=== PATIENT | female | born 1950 | race Caucasian/White ===

== ENCOUNTER 2016-10-08 15:03 | Outpatient (CLI) | payer BC | END 2016-10-08 15:04 | disposition home or self-care (01) | DX: Z78.0 Asymptomatic menopausal state (principal) ==

== ENCOUNTER 2016-10-08 15:04 | Outpatient (CLI) | payer BC | END 2016-10-08 15:05 | disposition home or self-care (01) | DX: Z12.31 Encounter for screening mammogram for malignant neoplasm of breast (principal) ==

== ENCOUNTER 2017-12-05 11:44 | Outpatient (CLI) | payer MEDICARE, OTHER | END 2017-12-05 11:45 | disposition home or self-care (01) | LOC: LAB.F 11:44 | PROVIDERS: ATTEND Physician Assistant | DX: Z09 Encounter for follow-up examination after completed treatment for conditions other than malignant neoplasm (principal) | CPT/HCPCS: 36415; 85025 ==

== ENCOUNTER 2017-12-06 08:00 | Outpatient (CLI) | payer MEDICARE, OTHER ==
[2017-12-07 10:49] LABS: BASOPHILS % (AUTO) 0.6 %; EOSINOPHILS # (AUTO) 0.2 10^3/uL (0.0-0.7); EOSINOPHILS % (AUTO) 3.1 %; HGB - HEMOGLOBIN 12.5 g/dL (12.0-16.0); LYMPHOCYTES # (AUTO) 1.4 10^3/uL (1.5-3.5); LYMPHOCYTES % (AUTO) 20.3 %; MEAN CORPUSCULAR HEMOGLOBIN 29.7 pg (27.0-31.0); MEAN CORPUSCULAR HGB CONC 33.4 g/dL (32.0-36.0); MEAN PLATELET VOLUME 8.7 fL (7.9-10.8); MONOCYTES # (AUTO) 0.5 10^3/uL (0.0-1.0); MONOCYTES % (AUTO) 6.7 %; NEUTROPHILS # (AUTO) 4.8 10^3/uL (1.5-6.6); NEUTROPHILS % (AUTO) 69.3 %; PLT - PLATELET COUNT 278 10^3/uL (130-450); RED BLOOD COUNT 4.21 10^6/uL (4.20-5.40); RED CELL DISTRIBUTION WIDTH 14.5 % (12.0-15.0); WHITE BLOOD COUNT 6.9 x10^3/uL (4.8-10.8)
== END 2017-12-06 08:01 | disposition home or self-care (01) ==
LOC: LAB.F 08:00
PROVIDERS: ATTEND Physician Assistant
DX: Z09 Encounter for follow-up examination after completed treatment for conditions other than malignant neoplasm (principal); I10 Essential (primary) hypertension
CPT/HCPCS: 36415; 85025

== ENCOUNTER 2018-01-02 14:32 | Outpatient (CLI) | payer MEDICARE, OTHER ==
--- NOTE | 2018-01-03 09:28 | Mammography Report ---
DIGITAL SCREENING MAMMOGRAM: 01/02/2018 COMPARISON: 10/08/2016, 04/07/2012, 03/29/2011, and 03/26/2010. TECHNIQUE: Bilateral digital CC and MLO projections. FINDINGS: There are scattered fibroglandular densities. There are bilateral coarse appearing benign calcifications. No suspicious clustered microcalcifications, dominant mass, skin thickening, architectural distortion, or interval change. IMPRESSION: NEGATIVE. BI-RADS CATEGORY 1 - NEGATIVE. SUGGEST RETURN TO ROUTINE SCREENING IN 12 MONTHS. STANDARD QUALIFYING STATEMENTS: 1. This examination was reviewed with the aid of Computer-Aided Detection (CAD) . 2. A negative or benign imaging report should not delay biopsy if clinically suspicious findings are present. Consider surgical consultation if warranted. More than 5 % of cancers are not identified by imaging. 3. Dense breasts may obscure an underlying neoplasm. TD: 01/03/2018 09:27 BENY
== END 2018-01-02 14:33 | disposition home or self-care (01) ==
LOC: DI 14:32
PROVIDERS: ATTEND Physician Assistant
DX: Z12.31 Encounter for screening mammogram for malignant neoplasm of breast (principal)
CPT/HCPCS: 77067

== ENCOUNTER 2019-09-06 12:22 | Outpatient (CLI) | payer MEDICARE, OTHER ==
--- NOTE | 2019-09-10 10:05 | Mammography Report ---
Reason: ROUTINE MAMMO Procedure Date: 09/06/2019 Accession Number: [id number] / [id number] Procedure: NATALIE - Screening Mammo w/Tuan CPT Code: Final Report FULL RESULT: EXAM: Screening Mammo w/Tuan DATE: 09/06/2019 12:43 PM CLINICAL HISTORY: Screening encounter. TECHNIQUE: (B) - Bilateral CC and MLO views were obtained. COMPARISON: 01/02/2018 through 03/26/2010. PARENCHYMAL PATTERN: (D) - The breast(s) demonstrate(s) heterogeneously dense fibroglandular parenchyma. FINDINGS: Redemonstration of coarse typically benign calcifications bilaterally. There are no suspicious masses, calcifications, or areas of distortion. IMPRESSION: Benign findings. BI-RADS category 2. RECOMMENDATION: (ANNUAL) - Recommend routine annual screening mammography. BI-RADS CATEGORY: (2) - Benign Findings. STANDARD QUALIFYING STATEMENTS: 1. This examination was not reviewed with the aid of Computer-Aided Detection (CAD). 2. A negative or benign imaging report should not preclude biopsy if clinically suspicious findings are present. 3. Dense breasts may obscure an underlying neoplasm. 4. This examination was reviewed with the aid of 3D breast imaging (tomosynthesis).
== END 2019-09-06 12:23 | disposition home or self-care (01) ==
LOC: DI 12:22
PROVIDERS: ATTEND Physician Assistant
DX: Z12.31 Encounter for screening mammogram for malignant neoplasm of breast (principal)
CPT/HCPCS: 77063; 77067

== ENCOUNTER 2021-03-29 12:23 | Outpatient (CLI) | payer MEDICARE, OTHER ==
--- NOTE | 2021-03-31 12:21 | Mammography Report ---
BILATERAL DIGITAL SCREENING MAMMOGRAM 3D/2D: 03/29/2021 CLINICAL: Routine screening. Comparison is made to exams dated: 09/06/2019 mammogram, 01/02/2018 mammogram, 10/08/2016 mammogram, 2011 mammogram, 03/29/2011 mammogram, and 03/26/2010 mammogram - [facility]. The tis emilio of both breasts is predominantly fatty. No significant masses, calcifications, or other findings are seen in either breast. There has been no significant interval change. IMPRESSION: NEGATIVE There is no mammographic evidence of malignancy. A 1 year screening mammogram is recommended. This exam was interpreted at Station ID: [id number]. NOTE: For mammograms, a report in lay terms will be sent to the patient. Approximately 15% of breast malignancies will not be visualized mammographically. In the management of a palpable breast mass, a negative mammogram must not discourage biopsy of a clinically suspicious lesion. Electronically Signed By: Lester Clinton M.D., jr/khari:03/30/2021 09:17:32 ACR BI-RADS Category 1: Negative 3341F A -Almost entirely fatty 1 Mammogram [id number] 1 year screening B
== END 2021-03-29 12:24 | disposition home or self-care (01) ==
LOC: DI.S 12:23
PROVIDERS: ATTEND Nurse Practitioner Family
DX: Z12.31 Encounter for screening mammogram for malignant neoplasm of breast (principal)

== ENCOUNTER 2022-10-27 15:41 | Outpatient (CLI) | payer MEDICARE, OTHER ==
--- NOTE | 2022-10-27 21:20 | XRAY Report ---
PROCEDURE: Cervical Spine Comp w/Flex/Ext INDICATIONS: BICEP TENDON TECHNIQUE: 7 views of the cervical spine were acquired. COMPARISON: X-ray lumbar spine 12/25/2008 FINDINGS: Bones: No fractures or dislocations to the C7-T1 level. No suspicious bony lesions. There is strai ghtening of cervical curvature. Severe disc space narrowing is present at C4-5, C5-6 and C6-7 with an terior bridging osteophytes most prominent at C5-6 and C6-7. Multilevel uncovertebral arthropathy is present. There is moderate to severe left foraminal narrowing at C3-4, C4-5 as well as mild to modera te at right C3-4. There is decreased range of motion between flexion and extension, with preserved no rmal bony alignment. Soft tissues: Prevertebral soft tissues are normal in thickness. IMPRESSION: Multilevel degenerative changes most severe from C4-5 through C6-7 with decreased range of motion. Reviewed by: Amy Stauffer MD on 10/27/2022 9:19 PM PST Approved by: Amy Stauffer MD on 10/27/2022 9:19 PM PST Station ID: [id number]
--- NOTE | 2022-10-27 21:21 | XRAY Report ---
PROCEDURE: Shoulder 3 View LT INDICATIONS: BICEP TENDON TECHNIQUE: 3 views of the shoulder were acquired. COMPARISON: X-ray shoulder 11/01/2008 FINDINGS: Bones: No fractures or dislocations. No suspicious bony lesions. Visualized ribs appear intact. M oderate to severe acromioclavicular degenerative narrowing. Soft tissues: No suspicious soft tissue calcifications. Visualized portions of the left lung are cl ear IMPRESSION: Acromioclavicular arthritic change. Reviewed by: Amy Stauffer MD on 10/27/2022 9:19 PM PST Approved by: Amy Stauffer MD on 10/27/2022 9:19 PM PST Station ID: [id number]
== END 2022-10-27 15:42 | disposition home or self-care (01) ==
LOC: DI.S 15:41
PROVIDERS: ATTEND Internal Medicine
DX: M47.812 Spondylosis without myelopathy or radiculopathy, cervical region (principal); M19.012 Primary osteoarthritis, left shoulder

== ENCOUNTER 2023-05-31 13:18 | Outpatient (CLI) | payer MEDICARE, OTHER ==
--- NOTE | 2023-06-01 22:16 | XRAY Report ---
PROCEDURE: Knee 3 View LT INDICATIONS: KNEE JOINT PAINFUL ON MOVEMENT TECHNIQUE: 3 views of the left knee(s) were acquired. COMPARISON: None. FINDINGS: Bones: Total knee arthroplasty. No fractures or dislocations. No suspicious bony lesions. Soft tissues: Small knee joint effusion. No suspicious soft tissue calcifications or masses. IMPRESSION: 1. No acute bony abnormality. 2. Total knee arthroplasty. 3. Small knee joint effusion. Reviewed by: Rose Basurto MD on 06/01/2023 10:14 PM PDT Approved by: Rose Basurto MD on 06/01/2023 10:14 PM PDT Station ID: [id number]
== END 2023-05-31 13:19 | disposition home or self-care (01) ==
LOC: DI.S 13:18
PROVIDERS: ATTEND Internal Medicine
DX: M25.562 Pain in left knee (principal); M25.462 Effusion, left knee; Z96.652 Presence of left artificial knee joint

== ENCOUNTER 2023-08-30 10:40 | Outpatient (CLI) | payer MEDICARE, OTHER ==
[2023-08-30 14:39] LABS: BASOPHILS % (AUTO) 0.5 %; EOSINOPHILS # (AUTO) 0.1 10^3/uL (0.0-0.7); EOSINOPHILS % (AUTO) 2.3 %; HCT - HEMATOCRIT 41.3 % (37.0-47.0); HGB - HEMOGLOBIN 13.2 g/dL (12.0-16.0); LYMPHOCYTES # (AUTO) 1.3 10^3/uL (1.5-3.5); LYMPHOCYTES % (AUTO) 34.3 %; MEAN CORPUSCULAR HEMOGLOBIN 29.7 pg (27.0-31.0); MONOCYTES # (AUTO) 0.3 10^3/uL (0.0-1.0); MONOCYTES % (AUTO) 6.4 %; NEUTROPHILS # (AUTO) 2.2 10^3/uL (1.5-6.6); NEUTROPHILS % (AUTO) 56.2 %; PLT - PLATELET COUNT 216 10^3/uL (130-450); RED BLOOD COUNT 4.44 10^6/uL (4.20-5.40); WHITE BLOOD COUNT 3.9 x10^3/uL (4.8-10.8)
[2023-08-30 14:52] LABS: % IRON SATURATION 19 % (20-50); ALBUMIN 4.3 g/dL (3.2-5.5); ALBUMIN/GLOBULIN RATIO 1.9 (1.0-2.2); ALKALINE PHOSPHATASE 79 IU/L (42-121); ALT ALANINE AMINOTRANSFERASE 20 IU/L (10-60); AST ASPARTATE AMINOTRANSFERASE 21 IU/L (10-42); BILIRUBIN,TOTAL 0.7 mg/dL (0.2-1.0); BUN - BLOOD UREA NITROGEN 12 mg/dL (6-20); CALCIUM 9.5 mg/dL (8.5-10.3); CARBON DIOXIDE - CO2 28 mmol/L (21-32); CHLORIDE 107 mmol/L (101-111); CREATININE 0.9 mg/dL (0.6-1.3); CRP - C-REACTIVE PROTEIN < 0.5 mg/dL (<0.5); GFR - MDRD 61 (>89); GLUCOSE 92 mg/dL (74-104); IRON 79 ug/dL (50-212); POTASSIUM 4.3 mmol/L (3.5-4.5); SODIUM 140 mmol/L (135-145); TOTAL IRON BINDING CAPACITY 419 ug/dL (250-450); TOTAL PROTEIN 6.6 g/dL (6.4-8.9); TRANSFERRIN 299 mg/dL (203-362)
[2023-08-30 15:10] LABS: FERRITIN 30.2 ng/mL (11.0-306.8)
[2023-08-30 15:24] LABS: ESTIMATED AVERAGE GLUCOSE 117 mg/dL (70-100); HEMOGLOBIN A1c% 5.7 % (4.27-6.07)
== END 2023-08-30 10:41 | disposition home or self-care (01) ==
LOC: LAB.S 10:40
PROVIDERS: ATTEND Internal Medicine
DX: I10 Essential (primary) hypertension (principal); E03.9 Hypothyroidism, unspecified; R73.01 Impaired fasting glucose; Z98.84 Bariatric surgery status; M54.2 Cervicalgia; E66.01 Morbid (severe) obesity due to excess calories
CPT/HCPCS: 36415; 80053; 82306; 82607; 82728; 82746; 83036; 83540; 84439; 84443; 84466; 85025; 86140

== ENCOUNTER 2023-11-24 14:49 | Outpatient (CLI) | payer MEDICARE, OTHER ==
[2023-11-24] MEDS ORDERED: GADOTERATE MEGLUMINE 10 MMOL/20 ML VIAL ONE (15:31)
[2023-11-24] MEDS ORDERED: GADOTERATE MEGLUMINE 2.5 MMOL/5 ML VIAL ONE (15:31)
[2023-11-24] MEDS: GADOTERATE MEGLUMINE 10 MMOL/20 ML VIAL IVP ONE (17:30)
--- NOTE | 2023-11-24 18:00 | MRI Report ---
PROCEDURE: Angio Neck W/WO INDICATIONS: GUSTATORY HALLUCINATIONS, HTN CONTRAST: CLARISCAN 22.2ML TECHNIQUE: Axial and sagittal balanced GE through the neck. Coronal dynamic MRA after the administration of con trast in the arterial and venous phases, with rotating 3-dimensional maximum intensity projection (AR P) reformats constructed from subtraction images. COMPARISON: Correlation is made with the accompanying imaging. FINDINGS: Image quality: Excellent. Motion artifact is noted. Carotid system: Great vessels demonstrate a conventional anatomy as they arise from the aortic arch. There is a high-grade stenosis of 80-90% within the left proximal common carotid artery, as on serie s 21 image 40. The more distal common carotid arteries are within normal limits. The carotid bifurcat ions appear demonstrate atherosclerotic irregularity, with 70-80% narrowing involving the origin of t he left internal carotid artery. No hemodynamic significant stenosis can be seen on the right. The mo re distal internal carotid arteries demonstrate normal course and caliber. Note is made of reduced f low within the left internal carotid artery compared to the right. Posterior circulation: The origins of the vertebral arteries are unremarkable. The more superior po rtions of the vertebral arteries demonstrate normal course and caliber. Vertebral arteries join to f orm a normal appearing basilar artery. The right vertebral artery is dominant to the left. Miscellaneous: Subclavian arteries are patent throughout. Pre-contrast images through the neck demo nstrate no soft tissue abnormalities. IMPRESSION: There is a high-grade stenosis of 80-90% within the proximal left common carotid artery. There is a 70-80% narrowing seen involving the origin of the left internal carotid artery. The flow within the left internal carotid artery is decreased compared to the right. Reviewed by: Juventino Laird MD on 11/24/2023 4:58 PM [place] Approved by: Juventino Laird MD on 11/24/2023 4:58 PM AKST Station ID: [id number]
--- NOTE | 2023-11-24 18:04 | MRI Report ---
PROCEDURE: Angio Head WO INDICATIONS: GUSTATORY HALLUCINATIONS, HTN TECHNIQUE: Noncontrast axial 3-D [id number] MR angiogram, with 3-dimensional maximum intensity projection (M IP) reformats of the internal carotid arteries and posterior circulation then performed. COMPARISON: Correlation is made with the accompanying imaging. FINDINGS: Image quality: Motion artifact is noted. Anterior circulation: Intracranial internal carotid arteries demonstrate asymmetric flow, decreased on the left compared to the right. Note is made of a diminutive left A1 segment, with a correspondin gly robust right A1 segment. This is considered to be a developmental variant of no clinical conseque nce. The flow within the paired anterior cerebral arteries is otherwise normal and symmetric. The f low within the middle cerebral arteries is decreased within the left middle cerebral artery territory compared to the right. The anterior communicating artery is seen. No stenoses, occlusions, or aneu rysms. Posterior circulation: Visualized portions of the vertebral arteries demonstrate normal caliber, and join to form a normal appearing basilar artery. The flow within the posterior cerebral arteries is normal and symmetric. No stenoses, occlusions, or aneurysms. IMPRESSION: Decreased flow within the left internal carotid artery and middle cerebral artery territory compared to the right. [place] of Parkinson developmental anomalies are incidentally noted, which are not considered to be clini maksim significant. Reviewed by: Juventino Laird MD on 11/24/2023 5:02 PM [facility] Approved by: Juventino Laird MD on 11/24/2023 5:02 PM [facility] Station ID: [id number]
--- NOTE | 2023-11-24 18:05 | MRI Report ---
PROCEDURE: Brain W/WO INDICATIONS: GUSTATORY HALLUCINATIONS, HTN CONTRAST: CLARISCAN 22.2ML TECHNIQUE: Noncontrast axial T1 spin echo, axial T2 fast spin echo, sagittal and axial FLAIR, coronal T2 fast sp in echo, axial gradient echo, axial diffusion and ADC through the brain. After the administration of contrast, axial and coronal T1 spin echo with fat saturation through the brain. COMPARISON: Correlation is made with the accompanying imaging. FINDINGS: Image quality: Excellent. CSF spaces: Basal cisterns are patent. There is an arachnoid cyst seen involving the posterior aspec t of the posterior fossa, centered to the right of the midline. Ventricles are normal in size and sha pe. Brain: No midline shift. No intracranial bleeds or masses. No abnormal intracranial enhancement. There is cerebral volume loss for age. There is periventricular white matter chronic small vessel is chemic change. The brainstem appears normal. Diffusion-weighted images demonstrate no acute ischemi c insults. No chronic ischemic insults. Normal intravascular flow voids are present. Skull and face: Calvarial marrow is normal in signal. Orbits appear normal. Incidental note is ma de of bilateral lens replacements. Sinuses: Sinuses and mastoids appear clear. IMPRESSION: No imaging explanation is found for the patient's presenting symptoms. No masses or abnormal enhancement can be seen. No prior territorial infarction can be seen. No findings of acute or subacute infarction are seen. Additional findings: Posterior fossa arachnoid cyst Bilateral lens replacements Reviewed by: Juventino Laird MD on 11/24/2023 5:04 PM [place] Approved by: Juventino Laird MD on 11/24/2023 5:04 PM [facility] Station ID: [id number]
== END 2023-11-24 14:50 | disposition home or self-care (01) ==
LOC: LAB 14:49
PROVIDERS: ATTEND Internal Medicine
DX: R44.2 Other hallucinations (principal); I10 Essential (primary) hypertension; I65.23 Occlusion and stenosis of bilateral carotid arteries
CPT/HCPCS: 36415; 70544; 70549; 70553; 82565; A9575

== ENCOUNTER 2024-02-03 10:23 | Outpatient (CLI) | payer MEDICARE, OTHER ==
[2024-02-03 15:35] LABS: THYROID STIMULATING HORMONE 0.19 uIU/mL (0.34-5.60)
[2024-02-03 15:44] LABS: ALBUMIN 4.2 g/dL (3.2-5.5); ALBUMIN/GLOBULIN RATIO 1.6 (1.0-2.2); BILIRUBIN,TOTAL 0.7 mg/dL (0.2-1.0); CALCIUM 9.5 mg/dL (8.5-10.3); CREATININE 0.8 mg/dL (0.6-1.3); POTASSIUM 4.5 mmol/L (3.5-4.5); TOTAL PROTEIN 6.8 g/dL (6.4-8.9)
[2024-02-04 06:10] LABS: VITAMIN D 25-HYDROXY 44.8 ng/mL (30.0-100.0)
== END 2024-02-03 10:24 | disposition home or self-care (01) ==
LOC: LAB.S 10:23
PROVIDERS: ATTEND Internal Medicine
DX: M81.0 Age-related osteoporosis without current pathological fracture (principal); E55.9 Vitamin D deficiency, unspecified; E03.9 Hypothyroidism, unspecified; Z98.84 Bariatric surgery status
CPT/HCPCS: 36415; 80053; 82306; 82330; 83970; 84439; 84443

== ENCOUNTER 2024-02-21 06:58 | Outpatient (CLI) | payer MEDICARE, OTHER ==
--- NOTE | 2024-02-21 11:03 | MRI Report ---
PROCEDURE: Cervical Spine WO INDICATIONS: CERVICAL SPINE STENOSIS TECHNIQUE: Noncontrast sagittal T1 spin echo and T2 fast spin echo, sagittal STIR, foraminal oblique sagittal T2 fast spin echo, and axial gradient echo or T2 fast spin echo through the cervical spine. COMPARISON: X-ray cervical spine 10/27/2022. FINDINGS: Image quality: Excellent. Alignment and Curvature: Straightening and mild reversal of the normal cervical lordosis.. Bone Marrow: Marrow demonstrates normal overall signal. Spinal Cord: Visualized spinal cord has normal size and signal. No cerebellar tonsillar herniation. Paraspinous Soft Tissues: No paravertebral masses. Prevertebral soft tissues are normal in thicknes s. C2-C3: Disc desiccation with central posterior disc osteophyte, central canal stenosis. Facet hypert rophic arthropathy. Moderate and the left neural foraminal stenosis. C3-C4: Disc desiccation and mild posterior disc osteophyte complex. Mild central canal stenosis. Fa cet and uncovertebral arthropathy. Severe right and moderate left neural foraminal stenosis. C4-C5: Disc desiccation and minimal posterior distal circumflex. No central canal stenosis. Facet an d uncovertebral arthropathy. Moderate right and mild left neural frontal stenosis. C5-C6: Disc desiccation and posterior disc osteophyte complex abutting the ventral cord. Moderate ce ntral canal stenosis. Facet and uncovertebral arthropathy. Moderate bilateral foraminal stenosis. C6-C7: Disc desiccation and height loss. History is also a complex abutting the ventral cord. Modera te central canal stenosis. Facet and uncovertebral arthropathy. Moderate bilateral neural foraminal s tenosis. C7-T1: No central canal or neuroforaminal stenosis. IMPRESSION: 1.Multilevel degenerative changes of the cervical spine as described above. 2.There is moderate central canal stenosis at C5-C6 and C6-C7. 3.Severe right neuroforaminal stenosis at C3-C4. Moderate multilevel neural foraminal stenosis as abo ve. Reviewed by: Jeyson Barroso MD on 02/21/2024 10:02 AM [facility] Approved by: Jeyson Barroso MD on 02/21/2024 10:02 AM [facility] Station ID: [id number]
== END 2024-02-21 06:59 | disposition home or self-care (01) ==
LOC: DI 06:58
PROVIDERS: ATTEND Internal Medicine
DX: M48.02 Spinal stenosis, cervical region (principal); M47.812 Spondylosis without myelopathy or radiculopathy, cervical region; M25.78 Osteophyte, vertebrae; M50.31 Other cervical disc degeneration, high cervical region

== ENCOUNTER 2024-03-28 13:59 | Outpatient (CLI) | payer MEDICARE, OTHER ==
--- NOTE | 2024-03-28 16:15 | CT Report ---
PROCEDURE: Cervical Spine WO INDICATIONS: OSTEOARTHRITIS OF CERVICAL SPINE TECHNIQUE: Noncontrast 3 mm thick sections acquired from the skull base to the T4 level. Sagittal and coronal r eformats were then constructed. For radiation dose reduction, the following was used: automated exp osure control, adjustment of mA and/or kV according to patient size. COMPARISON: MRI 02/21/2024 FINDINGS: Image quality: Excellent. Bones: No fractures or dislocations. Visualized superior ribs are intact. Multilevel facet arthrosi s, most prominent at the right side of C2-3, bilateral C3-4, C4-5, C5-6, C6-7 and right C7-T1. Uncove rtebral hypertrophy at C3-4, C4-5, C5-6 causing mild spinal canal narrowing. Severe right and moderat e left neural foraminal narrowing at C3-4. Soft tissues: Prevertebral soft tissues are normal in thickness. No paravertebral hematomas. No ap ical pneumothoraces. IMPRESSION: Multilevel degenerative disc disease and facet arthrosis. Specific level changes are described on rec ent MRI. Reviewed by: Suraj Del Toro MD on 03/28/2024 4:14 PM PDT Approved by: Suraj Del Toro MD on 03/28/2024 4:14 PM PDT Station ID: [id number]
== END 2024-03-28 14:00 | disposition home or self-care (01) ==
LOC: DI 13:59
PROVIDERS: ATTEND Nurse Practitioner Family
DX: M47.812 Spondylosis without myelopathy or radiculopathy, cervical region (principal); M50.31 Other cervical disc degeneration, high cervical region; M48.02 Spinal stenosis, cervical region